=== PATIENT | male | born 1965 | race Caucasian/White ===

== ENCOUNTER → 2020-07-19 | Outpatient (CLI) | payer OTHER | LOC: SJCVCIMAG 07-08 09:09 | PROVIDERS: ATTEND Internal Medicine | DX: I25.89 Other forms of chronic ischemic heart disease (principal); R93.1 Abnormal findings on diagnostic imaging of heart and coronary circulation; Z82.49 Family history of ischemic heart disease and other diseases of the circulatory system ==

== ENCOUNTER → 2020-07-23 | Outpatient (CLI) | payer OTHER ==
[~2020-07-23] VITALS: Ht 172.7 cm; Wt 80.7 kg
[~2020-07-23] MED LIST: ASA81BEC PO; LIPITOR40 MG PO; METOPROLOL SUCC25 M1 PO
--- NOTE | 2020-07-23 07:16 | EKG ---
[place] [address] [facility] [place] [address] ELECTROCARDIOGRAM REPORT Name: MARIANN JAMES Room #: [facility]#: [id number] Admission: 07/23/20 Attend Phys: Sergio Morales MD, Discharge: Date of : 61 Report #: [id number] [facility] Test Date: 2020-07-23 Test Time: 07:11:28 Pat Name: MARIANN JAMES Department: Room: Gender: Insurance Plan Specialist: [facility] : 1965 Requested By: Oskar Katz Order Number: [id number] : Sergio Morales Measurements Intervals [place] Rate: 64 P: 18 IA: 215 QRS: -3 QRSD: 88 T: 4 QT: 391 QTc: 404 Interpretive Statements Sinus rhythm Prolonged IA interval Inferior infarct, old No previous ECG available for comparison Electronically Signed On 07-23-2020 7:15:58 MOLD PULLER by Sergio Morales [email or web address] <ELECTRONICALLY SIGNED> By: Sergio Morales MD, [facility] 07/23/20 0715 0 Sergio Morales MD, FACC /EPI
[2020-07-23 07:19] VITALS: BP 108/69
--- NOTE | 2020-07-23 10:07 | CATHLAB ---
[facility] [place] [address] [place] [address] INVASIVE PROCEDURE REPORT Name: MARIANN JAMES Room #: [facility].#: [id number] Admission: 07/23/20 Attend Phys: Sergio Morales MD, Discharge: Date of : 61 Report #: [id number] THIS REPORT FOR: cc: Golden Ortiz John E. DO Mancuso, Gerald M. MD LOCATED WITHIN [facility] ~ APPROVED REPORT Study performed: 07/23/2020 07:43:26 Patient Details The patient is a 55 year-old male Event Personnel Oskar Katz Tobacco Educator, Juan Alberto Esquivel RN RN, Jeanie Montanez Monitor, Ana Chan RTR, MIGUEL Hartmann, Demarcus Raymond RTR [employer] Procedures Performed Art Access - R femoral artery* Left Heart Cath w/or w/o Coronaries [id number] [facility] Aortogram Abdominal Peripheral Angio 707884 Hemostasis w/ Mynx 76283 Mod Sed Same Phys/QHP Ea [id number] Indication Chest pain Procedure Narrative The Right Groin^ was infiltrated with 1% Lidocaine subcutaneous anesthesia. A PINNACLE 6FR Sheath #[id number] sheath was inserted into the RFA 6X11^. Coronary angiography was performed using coronary diagnostic catheters. The right coronary system was accessed and visualized with a JR4 catheter. The left coronary system was accessed and visualized with a JL4 catheter. The left ventricle was accessed and visualized with a STR PIG catheter. Left ventriculogram was performed in 30 degree projection. The patient tolerated the procedure well and there were no complications associated with the procedure. There was no hematoma. Intraoperative Conscious Sedation Sedation start time: 815 Case end Time: 08 Fentanyl 50 mcg Versed 1 mg Fluoro Time: 1.30 minutes [facility] [address] [place] [address] INVASIVE PROCEDURE REPORT Name: MARIANN JAMES Room #: [facility]#: [id number] Admission: 07/23/20 Attend Phys: Sergio Morales, Discharge: Date of : 61 Report #: [id number] Dose: DAP 5604.10 cGycm2 716 mGy Contrast Type and Amount: Omnipaque 90 ml Hemodynamics The aortic pressure is 115/62 mmHg with a mean of 84 mmHg. The left ventricular pressure is 115/11 mmHg with a mean of mmHg. The left ventricular end diastolic pressure is 17 mmHg. Conclusion #1. Normal left ventricular size systolic function lower limits of normal EF 50 to 55% subtle inferior lag. #2 abdominal aortogram revealing mildly ectatic abdominal aorta with calcification no aneurysm or significant stenosis noted. 3 distal left main with 30% narrowing calcification giving rise to LAD and circumflex. #4 LAD is complex proximal disease 70 to 80% long narrowing with calcification and then the proximal mid LAD is subtotaled at a large diagonal takeoff. TAYLOR grade II flow in that vessel. #5 circumflex OM is nondominant but moderate in distribution. The first OM has an 80% narrowing then a well-preserved large OM and then the distal circumflex has a 70% eccentric lesion. #6 dominant right coronary artery large and ectatic proximal calcification subtotal proximal tandem lesions 95% mid vessel 90% and then a subtotal distal right 99% giving rise to a PDA BETH. BETH is well preserved as a target for revascularization. Recommendations and plan: Aggressive risk factor modification. Patient will be admitted to CCU. Needs revascularization by bypass surgery. Have discussed with Dr. Morales and CT surgery. Patient is pain-free without EKG changes currently. <ELECTRONICALLY SIGNED> By: Oskar Katz MD, FACC 07/23/20 1007 1007 1007 Oskar Katz MD, FACC /INF
--- NOTE | 2020-07-27 15:16 | HC ---
[facility] [place] [address] [place] [address] CONSULTATION Name: MARIANN JAMES Room #: [facility]#: [id number] Admission: 07/23/20 Attend Phys: Sergio Morales MD, Discharge: Date of : 61 Report #: [id number] THIS REPORT FOR: cc: Golden Ortiz John E. DO Forman, John M. MD ~ DATE OF SERVICE: 07/23/2020 We were asked to see the patient by Dr. Katz. HISTORY OF PRESENT ILLNESS: The patient is a 54-year-old with coronary artery disease. The patient presents with abnormal stress test with inferoseptal hypokinesis at peak stress, normal ejection fraction of 60% according to that study. The patient had a positive calcium score of 1166 in 01/2020, which led to this study. In terms of symptoms, the patient has had some fatigue and exertional dyspnea, but denies angina. FAMILY HISTORY: Strongly positive for coronary artery disease with father having a stroke in his 50s and from myocardial infarct in 60s. Two siblings have also had coronary problems, one of whom had bypass surgery. MEDICATIONS: The patient takes no prescribed medication at home beyond fish oil. The patient does take some natural products such as milk thistle. ALLERGIES: No specific allergies to any medication reported. The patient states he has been tested and there may be a PENICILLIN ALLERGY by test, but he has had antibiotics without problems. PAST MEDICAL HISTORY: The patient denies hypertension, diabetes, the patient does state he has elevated cholesterol, but has not been prescribed any medicine for dyslipidemia. REVIEW OF SYSTEMS: GENERAL: No weight change, fever. EYES: Denies vision change. ENT: Denies hearing problems, sinus problems. CARDIAC: As mentioned some shortness of breath with exertion. Denies angina, no palpitations. RESPIRATORY: Denies cough, sputum production. GASTROINTESTINAL: Denies abdominal pain, nausea, vomiting blood. GENITOURINARY: Denies urgency, frequency, pain, or blood. MUSCULOSKELETAL: Denies bone or joint pain. SKIN: Denies rash or infection. NEUROLOGIC: Has had some sciatica problems with pain in the left leg, but no other motor or sensory dysfunction. [facility] [address] [place] [address] CONSULTATION Name: MARIANN JAMES Room #: [facility]#: [id number] Admission: 07/23/20 Attend Phys: Sergio Morales MD, Discharge: Date of : 61 Report #: [id number] HEMATOLOGIC: Denies bruisability, bleeding. ENDOCRINE: Denies goiter, tremor. PHYSICAL EXAMINATION: CONSTITUTIONAL: The patient is lying in bed, status post cardiac catheterization. VITAL SIGNS: Heart rate 63, blood pressure 130/84. HEENT: No scleral icterus, no arcus. NECK: No mass. I hear no bruit. CHEST: Clear to auscultation. HEART: Rhythm regular, no murmur. ABDOMEN: Soft. EXTREMITIES: No clubbing, cyanosis or edema, 2+ popliteal pulses bilaterally. No obvious saphenous vein problems. SKIN: No rash or infection. NEUROLOGIC: No motor or sensory dysfunction noted. MUSCULOSKELETAL: No bone or joint asymmetry or deformity. PSYCHIATRIC: Shows insight into problem and is a bit apprehensive, but appropriate and is oriented x 3. Cardiac catheterization dated today demonstrates severe 3-vessel coronary artery disease with normal ventricular function. ASSESSMENT: The patient has important 3-vessel coronary artery disease in the setting of mild symptoms and strong family history and positive calcium score. I have recommended coronary artery bypass surgery. Risks and details of this were discussed. Options and alternatives were reviewed. Risks include but are not limited to bleeding, infection, anesthesia risks, heart and lung problems, stroke and . Options and alternatives were discussed. The patient understands all of this and will reflect. I have offered the patient operating room time on Sunday, the and if the patient wishes to proceed, that will be the plan. Otherwise, we will obtain our typical preoperative studies. Thank you for the consult. <ELECTRONICALLY SIGNED> By: Golden Strickland MD 07/27/20 1516 0925 [id number] Golden Strickland MD /nt
== END | disposition home or self-care (01) ==
LOC: CATH 06:26
PROVIDERS: ATTEND Internal Medicine
DX: R07.9 Chest pain, unspecified (principal); I25.10 Atherosclerotic heart disease of native coronary artery without angina pectoris; I77.811 Abdominal aortic ectasia; I10 Essential (primary) hypertension; E11.9 Type 2 diabetes mellitus without complications; E78.5 Hyperlipidemia, unspecified; I65.23 Occlusion and stenosis of bilateral carotid arteries; I25.2 Old myocardial infarction; Z98.890 Other specified postprocedural states; Z79.899 Other long term (current) drug therapy; Z79.82 Long term (current) use of aspirin; Z82.49 Family history of ischemic heart disease and other diseases of the circulatory system; Z88.8 Allergy status to other drugs, medicaments and biological substances; Z20.822 Contact with and (suspected) exposure to COVID-19